=== PATIENT | female | born 1935 ===

== ENCOUNTER 2017-02-20 17:00 | Inpatient (IN) | payer MEDICARE ==
[~2017-02-20] VITALS: Ht 162.6 cm; Wt 58.8 kg
[2017-02-21 16:57] VITALS: BP 143/50; PULSE 56; TEMP 97.6
[2017-02-21] MEDS ORDERED: GLUCOPHAGE1000 MG PO (22:59)
[2017-02-21] MEDS ORDERED: AZO URINARY PAI95 MG (23:01)
[2017-02-21] MEDS ORDERED: LIPITOR 80MG80 MG PO (23:03)
[2017-02-21] MEDS ORDERED: DITROPAN 5MG TAB5 MG PO (23:04)
[2017-02-21] MEDS ORDERED: TOPROL XL 25MG25 MG PO (23:05)
[2017-02-21] MEDS ORDERED: COZAAR100 MG PO (23:07)
[2017-02-21] MEDS ORDERED: BANOPHEN25 M1 PO (23:08)
[2017-02-21] MEDS ORDERED: JANUVIA 100MG100 MG PO (23:09)
[2017-02-21] MEDS ORDERED: ASPIRIN 81M81 MG/TA2 PO (23:11)
[2017-02-21] MEDS ORDERED: PRISTIQ100 MG PO (23:12)
[2017-02-21] MEDS ORDERED: VENTOLIN0.09 MG IH (23:14)
[2017-02-21] MEDS ORDERED: QVAR0.04 MG/AC IH (23:15)
[2017-02-21] MEDS ORDERED: EXCEDRIN1 TAB PO (23:16)
[2017-02-22 04:44] VITALS: BP 109/40; PULSE 51; TEMP 97.8
[2017-02-22 07:40] LABS: INR 3.6 (0.8-3.0); PROTHROMBIN TIME 42.5 SECONDS (9.7-12.8)
[2017-02-22 16:37] VITALS: BP 133/39; PULSE 52; PULSE 66; TEMP 97.4; TEMP 97.5
[2017-02-23 06:00] VITALS: BP 114/72; PULSE 83; TEMP 97.6
[2017-02-23 06:35] LABS: INR 3.9 (0.8-3.0)
[2017-02-23 07:11] LABS: PROTHROMBIN TIME 45.7 SECONDS (9.7-12.8)
[2017-02-23 15:41] VITALS: BP 116/43; PULSE 52; TEMP 97.3
[2017-02-23 18:57] LABS: BASO # 0.1 (0.0-0.2); BASO % 0.6 % (0.0-2.0); EOS # 0.3 (0.0-0.7); EOS % 2.5 % (0-4.0); GRAN # 6.1 (1.4-6.5); GRAN % 59.2 % (42.2-75.2); HEMATOCRIT 33.1 % (37.0-47.0); HEMOGLOBIN 11.1 g/dl (12.5-16.0); LYMPH # 3.1 (1.2-3.4); LYMPH % 29.8 % (20.0-51.0); MEAN CELL VOLUME 95 fl (80.0-100.0); MEAN CORPUSCULAR HEMOGLOBIN 32 pg (27.0-31.0); MEAN CORPUSCULAR HGB CONC 34 g/dl (33.0-37.0); MEAN PLATELET VOLUME 8.9 fl (7.4-10.4); MONO # 0.8 (0.1-0.6); MONO % 7.6 % (1.7-9.3); PLATELET COUNT 322 K/mm3 (130-400); RED BLOOD COUNT 3.48 M/mm3 (4.10-5.30); WHITE BLOOD COUNT 10.3 K/mm3 (4.8-10.8)
[2017-02-23 19:05] LABS: CALCIUM 9.3 mg/dL (8.4-10.2); CREATININE, serum 2.16 mg/dL (0.52-1.25); POTASSIUM 4.6 mmol/L (3.4-5.0)
[2017-02-23 22:34] LABS: COLLECTION METHOD CATHETER
[2017-02-23 22:42] LABS: PH 5 (5-8); SQUAMOUS EPITHELIAL None Seen /hpf; URINE APPEARANCE Cloudy; URINE BACTERIA None Seen /hpf; URINE BILIRUBIN Negative (NEGATIVE); URINE BLOOD 2+ (NEGATIVE); URINE COLOR Red; URINE GLUCOSE Negative (NEGATIVE); URINE KETONE Negative (NEGATIVE); URINE LEUKOCYTE ESTERASE Trace (NEGATIVE); URINE PROTEIN(semi-quant) 2+ (NEGATIVE); URINE RBC >50 /hpf
[2017-02-23 22:43] LABS: URINE WBC >50 /hpf
[2017-02-24 03:41] VITALS: BP 123/35; PULSE 58; TEMP 98.3
[2017-02-24 07:23] LABS: CALCIUM 8.9 mg/dL (8.4-10.2); CREATININE, serum 1.64 mg/dL (0.52-1.25); POTASSIUM 4.4 mmol/L (3.4-5.0)
[2017-02-24 07:28] LABS: INR 2.6 (0.8-3.0); PROTHROMBIN TIME 30.3 SECONDS (9.7-12.8)
[2017-02-24 16:28] VITALS: BP 154/85; PULSE 52; TEMP 97.8
[2017-02-25 04:42] VITALS: BP 147/40; PULSE 64; TEMP 98.2
[2017-02-25 06:11] LABS: BASO % 0.6 % (0.0-2.0); EOS # 0.3 (0.0-0.7); EOS % 4.6 % (0-4.0); GRAN # 4.2 (1.4-6.5); GRAN % 60.1 % (42.2-75.2); LYMPH # 1.9 (1.2-3.4); LYMPH % 26.7 % (20.0-51.0); MEAN CELL VOLUME 97 fl (80.0-100.0); MEAN CORPUSCULAR HGB CONC 33 g/dl (33.0-37.0); MEAN PLATELET VOLUME 9.3 fl (7.4-10.4); MONO # 0.5 (0.1-0.6); MONO % 7.6 % (1.7-9.3); PLATELET COUNT 245 K/mm3 (130-400); RED BLOOD COUNT 3.29 M/mm3 (4.10-5.30)
[2017-02-25 06:12] LABS: HEMATOCRIT 31.8 % (37.0-47.0); HEMOGLOBIN 10.4 g/dl (12.5-16.0); MEAN CORPUSCULAR HEMOGLOBIN 32 pg (27.0-31.0)
[2017-02-25 06:18] LABS: INR 1.6 (0.8-3.0); PROTHROMBIN TIME 18.3 SECONDS (9.7-12.8)
[2017-02-25 06:24] LABS: CALCIUM 8.7 mg/dL (8.4-10.2); CREATININE, serum 1.02 mg/dL (0.52-1.25); MAGNESIUM 1.7 mg/dL (1.6-2.3); POTASSIUM 4.1 mmol/L (3.4-5.0)
[2017-02-25 17:57] VITALS: BP 152/57; PULSE 93; TEMP 97.9
[2017-02-26 05:49] VITALS: BP 142/41; PULSE 70; TEMP 98.3
[2017-02-26 07:26] LABS: INR 1.5 (0.8-3.0); PROTHROMBIN TIME 16.5 SECONDS (9.7-12.8)
[2017-02-26 18:08] VITALS: BP 154/58; PULSE 62; TEMP 98.1
[2017-02-27 05:45] VITALS: BP 146/57; PULSE 84; TEMP 98.2
[2017-02-27 06:05] LABS: INR 1.5 (0.8-3.0); PROTHROMBIN TIME 16.3 SECONDS (9.7-12.8)
[2017-02-27 17:37] VITALS: BP 146/59; PULSE 83; TEMP 97.9
[2017-02-28 04:57] VITALS: BP 149/55; PULSE 87; TEMP 97.1
[2017-02-28 07:01] LABS: INR 1.6 (0.8-3.0); PROTHROMBIN TIME 18.5 SECONDS (9.7-12.8)
[2017-02-28 15:29] VITALS: BP 149/51; PULSE 80; TEMP 97.8
[2017-03-01 04:05] VITALS: BP 145/59; PULSE 90; TEMP 98.5
[2017-03-01 06:22] LABS: INR 1.5 (0.8-3.0)
[2017-03-01 06:34] LABS: CALCIUM 9.2 mg/dL (8.4-10.2); CREATININE, serum 0.97 mg/dL (0.52-1.25); MAGNESIUM 1.4 mg/dL (1.6-2.3); POTASSIUM 3.9 mmol/L (3.4-5.0)
[2017-03-01 15:23] VITALS: BP 142/42; PULSE 84; TEMP 97.6
[2017-03-02 05:27] VITALS: BP 122/61; PULSE 102; TEMP 98.1
[2017-03-02 07:28] LABS: INR 1.5 (0.8-3.0); PROTHROMBIN TIME 17.5 SECONDS (9.7-12.8)
[2017-03-02 17:25] VITALS: BP 136/49; PULSE 79; TEMP 97.8
[2017-03-03 05:46] VITALS: BP 139/51; PULSE 92; TEMP 97.6
[2017-03-03 06:31] LABS: INR 1.4 (0.8-3.0); PROTHROMBIN TIME 16.2 SECONDS (9.7-12.8)
[2017-03-03 15:54] VITALS: BP 136/51; PULSE 78; TEMP 97.7
[2017-03-04 05:12] VITALS: BP 144/53; PULSE 84; TEMP 97.6
[2017-03-04 07:09] LABS: INR 1.6 (0.8-3.0); PROTHROMBIN TIME 18.6 SECONDS (9.7-12.8)
[2017-03-04 16:12] VITALS: BP 130/56; PULSE 80; TEMP 97.7
[2017-03-05 04:06] VITALS: BP 130/50; PULSE 93; TEMP 97.4
[2017-03-05 07:16] LABS: INR 1.7 (0.8-3.0); PROTHROMBIN TIME 19.9 SECONDS (9.7-12.8)
[2017-03-05 15:03] VITALS: BP 115/43; PULSE 72; TEMP 97.6
[2017-03-06 04:03] VITALS: BP 121/37; PULSE 88; TEMP 97.6
[2017-03-06 07:02] LABS: CALCIUM 9.1 mg/dL (8.4-10.2); CREATININE, serum 1.05 mg/dL (0.52-1.25); INR 2.2 (0.8-3.0); MAGNESIUM 1.7 mg/dL (1.6-2.3); POTASSIUM 3.9 mmol/L (3.4-5.0); PROTHROMBIN TIME 25.5 SECONDS (9.7-12.8)
[2017-03-06 10:57] VITALS: BP 124/53; PULSE 81
[2017-03-06 17:24] VITALS: BP 133/58; PULSE 87; TEMP 98.2
[2017-03-07 04:30] VITALS: BP 146/58; PULSE 85; TEMP 98.1
[2017-03-07 16:00] VITALS: BP 130/52; PULSE 86; TEMP 98.2
[2017-03-08 06:02] VITALS: BP 133/60; PULSE 85; TEMP 98.2
[2017-03-08 09:49] LABS: INR 1.6 (0.8-3.0); PROTHROMBIN TIME 19.2 SECONDS (9.7-12.8)
[2017-03-08 16:05] VITALS: BP 136/50; PULSE 81; TEMP 98.5
[2017-03-09 05:19] VITALS: BP 132/50; PULSE 80; TEMP 98.1
[2017-03-09 17:06] VITALS: BP 133/49; PULSE 81; TEMP 98.1
[2017-03-10 04:58] VITALS: BP 166/54; PULSE 81; TEMP 98.3
[2017-03-10 17:09] VITALS: BP 116/56; PULSE 70; TEMP 97.6
[2017-03-11 06:01] VITALS: BP 132/54; PULSE 78; TEMP 98.2
[2017-03-11 06:21] LABS: INR 1.7 (0.8-3.0); PROTHROMBIN TIME 19.4 SECONDS (9.7-12.8)
[2017-03-11 06:26] LABS: CALCIUM 9.1 mg/dL (8.4-10.2); CREATININE, serum 0.94 mg/dL (0.52-1.25); MAGNESIUM 1.7 mg/dL (1.6-2.3); POTASSIUM 3.9 mmol/L (3.4-5.0)
[2017-03-11 16:17] VITALS: BP 141/50; PULSE 86; TEMP 97.5
[2017-03-12 05:32] VITALS: BP 136/53; PULSE 87; TEMP 98.1
[2017-03-12 15:09] VITALS: BP 119/46; PULSE 78; TEMP 97.8
[2017-03-13 03:59] VITALS: BP 125/40; PULSE 78; TEMP 98.4
[2017-03-13 06:38] LABS: INR 2.5 (0.8-3.0); PROTHROMBIN TIME 29.3 SECONDS (9.7-12.8)
[2017-03-13 06:44] LABS: CALCIUM 9.2 mg/dL (8.4-10.2); CREATININE, serum 0.82 mg/dL (0.52-1.25); POTASSIUM 3.7 mmol/L (3.4-5.0)
[2017-03-13 16:34] VITALS: BP 131/48; PULSE 72; TEMP 97.8
[2017-03-14 05:57] VITALS: BP 151/46; PULSE 75; TEMP 98.1
[2017-03-14 17:20] VITALS: BP 113/42; PULSE 76; TEMP 97.5
[2017-03-15 05:06] VITALS: BP 139/49; PULSE 66; TEMP 98.2
[2017-03-15 06:46] LABS: INR 2.7 (0.8-3.0); PROTHROMBIN TIME 32.3 SECONDS (9.7-12.8)
[2017-03-15] MEDS ORDERED: TYLENOL 325MG325 MG PO (08:34)
[2017-03-15] MEDS ORDERED: MAG-OX 400400 MG/TAB PO (08:34)
[2017-03-15] MEDS ORDERED: COUMADIN 2MG2 MG/TAB PO (08:34)
[2017-03-15] MEDS ORDERED: ASPIRIN E.C. 8181 MG PO (08:35)
[2017-03-15] MEDS ORDERED: NORVASC 5MG5 MG/TAB PO (08:36)
== END 2017-03-15 16:00 | disposition home or self-care (01) | DRG 56 ==
PROVIDERS: Family Medicine; Internal Medicine; Nurse Practitioner Family
DX: I69.351 Hemiplegia and hemiparesis following cerebral infarction affecting right dominant side (principal); E43 Unspecified severe protein-calorie malnutrition; N13.6 Pyonephrosis; N17.9 Acute kidney failure, unspecified; E87.1 Hypo-osmolality and hyponatremia; I69.321 Dysphasia following cerebral infarction; I69.319 Unspecified symptoms and signs involving cognitive functions following cerebral infarction; I10 Essential (primary) hypertension; E11.9 Type 2 diabetes mellitus without complications; J45.909 Unspecified asthma, uncomplicated; I25.10 Atherosclerotic heart disease of native coronary artery without angina pectoris; Z95.5 Presence of coronary angioplasty implant and graft; Z79.01 Long term (current) use of anticoagulants; Z87.891 Personal history of nicotine dependence; Z95.1 Presence of aortocoronary bypass graft; B96.5 Pseudomonas (aeruginosa) (mallei) (pseudomallei) as the cause of diseases classified elsewhere; R31.0 Gross hematuria; E83.42 Hypomagnesemia
CPT/HCPCS: 99222-AI; 99232-AI; 99233-AI; 99239; J0696; J1815; J7030